=== PATIENT | female | born 1990 | race Two or more races ===

== ENCOUNTER → 2018-07-23 | Outpatient (CLI) | payer SELFPAY ==
--- NOTE | 2018-07-23 13:59 | RADIOLOGY REPORT (SQ) ---
EXAM DESCRIPTION: U/S [id number] TRNABD 1GES W/ODOP COMPLETED DATE/TIME: 07/23/2018 1:40 pm REASON FOR STUDY: Z34.81 ENCOUNTER FOR SUPRVSN OF NORMAL , FIRST TRIMESTER Z34.81 ENCOUNTE R FOR SUPRVSN OF NORMAL , FIRST TRIM COMPARISON: None. TECHNIQUE: Transabdominal static and realtime grayscale images acquired of the pelvis. Additional se lected spectral and color Doppler images recorded. All images stored on PACs. bHCG: None available CLINICAL DATES: Last menses 05/06/2018 LIMITATIONS: None. FINDINGS: Intrauterine gestational sac is present containing an embryo without cardiac activity by r eal-time scanning, M-mode Doppler, or color flow. Embryo demise was called as a critical result to Olivia Decker at the [facility] Department, 1345 hours 07/23/2018. ULTRASOUND EGA: 9 weeks 2 days EFW: Not applicable less than 20 weeks. CRL: 2.6 cm FHR: No embryo cardiac activity SURVEY: Too early to assess. AMNIOTIC FLUID: Adequate amount. PLACENTA: Not yet developed due to early gestation. SUBCHORIONIC BLEED: No. SIZE OF BLEED: Not applicable. UTERUS: No masses. No anomalies. Uterus is 9 x 8 x 8 cm in size CERVICAL LENGTH: 3 Closed. RIGHT ADNEXA: Not visualized due to adnexal bowel gas LEFT ADNEXA: Not visualized due to adnexal bowel gas FREE FLUID: None. OTHER: No other significant finding. IMPRESSION: Embryo demise EGA 9 weeks 2 days Trimester of : First - 0 to 13 weeks. COMMENT: Pertinent findings on the imaging study reported as a CRITICAL RESULT to Chelle Decker at13 :45 on 07/23/2018. Category of Critical Result: Embryo demise, 9 weeks EGA TECHNICAL DOCUMENTATION: JOB ID: [id number] [employer]- All Rights Reserved rev Reading location - IP/workstation name: [id number]
== END ==
LOC: RAD 14:11
PROVIDERS: ATTEND Nurse Practitioner
DX: O02.1 Missed abortion (principal)
CPT/HCPCS: 76801

== ENCOUNTER 2020-05-20 19:23 | Emergency (ER) | payer BC ==
[2020-05-20] MEDS ORDERED: ONDANSETRON HCL INJ/PF 4 MG/2 ML SDV IV ONE (21:30)
[2020-05-20] MEDS ORDERED: NORMAL SALINE 1000 ML 1,000 ML IV ONE (21:30)
--- NOTE | 2020-05-20 21:32 | ER Document Report ---
ED Medical Screen (RME) - General TRAVEL OUTSIDE OF THE U.S[place] IN LAST 30 DAYS: No <DOYLE BENNETT - Last Filed: 05/20/20 21:31> <KIMMY HOUSE JR - Last Filed: 05/21/20 00:07> - General Chief Complaint: Urinary Problem Stated Complaint: NEAR SYNCOPE, BACK PAIN, BLOOD IN URINE Time Seen by Provider: 05/20/20 21:24 Primary Care Provider: REY CARMICHAEL APRN [Primary Care Provider] - Follow up as needed Notes: Patient is a 29-year-old female who presents emergency department with a chief complaint of vomiting. Patient reports she has had a urinary pain and frequency over the past week. States that on Saturday which was 4 days ago she developed vomiting. She states anytime she attempts to drink something she vomits. Patient reports flank pain bilaterally. (DOYLE BENNETT) Physical Exam - Vital signs Vitals: Temp 98.2 F 05/20/20 19:25 Course <DOYLE BENNETT - Last Filed: 05/20/20 21:31> - Laboratory Result Diagrams: 05/20/20 22:00 05/20/20 22:00 <KIMMY HOUSE JR - Last Filed: 05/21/20 00:07> - Re-evaluation Re-evalutation: 05/20/20 21:32 No prominent CVA tenderness. Will initiate basic labs as well as a urinalysis with IV fluids and antinausea medication. I have greeted and performed a rapid initial assessment of this patient. A comprehensive ED assessment and evaluation of the patient, analysis of test results and completion of the medical decision making process will be conducted by additional ED providers. (DOYLE BENNETT) - Vital Signs Vital signs: Temp Pulse Resp BP Pulse Ox 98.2 F 62 20 113/57 L 99 05/20/20 23:13 05/20/20 23:13 05/20/20 23:13 05/20/20 23:13 05/20/20 23:13 - Laboratory Laboratory results interpreted by me: 05/20/20 05/20/20 22:00 22:00 Hgb 16.1 H Total Protein 9.0 H Albumin 5.3 H Doctor's Discharge <DOYLE BENNETT - Last Filed: 05/20/20 21:31> <KIMMY HOUSE JR - Last Filed: 05/21/20 00:07> - Discharge Referrals: REY CARMICHAEL, WELCOME WAGON HOST/HOSTESS [Primary Care Provider] - Follow up as needed
[2020-05-20 22:51] LABS: ABSOLUTE LYMPHOCYTES (AUTO) 1.5 10^3/uL (0.5-4.7); ABSOLUTE MONOCYTES (AUTO) 0.4 10^3/uL (0.1-1.4); ABSOLUTE NEUT (AUTO) 6.3 10^3/uL (1.7-8.2); BASOPHILS % (AUTO) 0.3 % (0-2); EOSINOPHILS % (AUTO) 0.2 % (0-6); HEMATOCRIT 44.8 % (36.0-47.0); HEMOGLOBIN 16.1 g/dL (12.0-15.5); LYMPHOCYTES % (AUTO) 18.4 % (13-45); MEAN CORPUSCULAR HEMOGLOBIN 30.5 pg (27.0-33.4); MEAN CORPUSCULAR HGB CONC 35.8 g/dL (32.0-36.0); MEAN CORPUSCULAR VOLUME 85 fl (80-97); MONOCYTES % (AUTO) 5.2 % (3-13); PLATELET COUNT 295 10^3/uL (150-450); RED BLOOD COUNT 5.27 10^6/uL (3.72-5.28); RED CELL DISTRIBUTION WIDTH 12.7 % (11.5-14.0); SEGMENTED NEUTROPHILS % (AUTO) 75.9 % (42-78); TOTAL CELLS COUNTED % (AUTO) 100 %; WHITE BLOOD COUNT 8.3 10^3/uL (4.0-10.5)
[2020-05-20 23:15] LABS: ALBUMIN 5.3 g/dL (3.5-5.0); ALKALINE PHOSPHATASE 63 U/L (38-126); ANION GAP 16 (5-19); ASPARTATE AMINO TRANSFERASE 25 U/L (14-36); BILIRUBIN,DIRECT 0.2 mg/dL (0.0-0.4); BILIRUBIN,TOTAL 1.3 mg/dL (0.2-1.3); BLOOD UREA NITROGEN 14 mg/dL (7-20); CALCIUM 9.7 mg/dL (8.4-10.2); CARBON DIOXIDE 22 mmol/L (22-30); CHLORIDE 100 mmol/L (98-107); GLUCOSE 90 mg/dL (75-110); POTASSIUM 3.8 mmol/L (3.6-5.0)
--- NOTE | 2020-05-20 23:59 | ER Document Report ---
ED General Pain - General Chief Complaint: Back Pain Stated Complaint: NEAR SYNCOPE, BACK PAIN, BLOOD IN URINE Time Seen by Provider: 05/20/20 21:24 Primary Care Provider: REY CARMICHAEL APRN [Primary Care Provider] - Follow up as needed Mode of Arrival: Ambulatory Information source: Patient Notes: 05/20/20 21:28 - ED Nursing Note by ALEX PITT [facility] Num: [id number] : 1990 Patient Age: 29 Pt presented to the ED with c/o flank pain x7 days with ingrid and vomiting, provider at the bedside orders to follow. Olivia pitt RN ED Medical Screen ([facility] Notes) - General Chief Complaint: Urinary Problem Stated Complaint: NEAR SYNCOPE, BACK PAIN, BLOOD IN URINE Time Seen by Provider: 05/20/20 21:24 Primary Care Provider: REY CARMICHAEL APRN [Primary Care Provider] - Follow up as needed Notes: Patient is a 29-year-old female who presents emergency department with a chief complaint of vomiting. Patient reports she has had a urinary pain and frequency over the past week. States that on Saturday which was 4 days ago she developed vomiting. She states anytime she attempts to drink something she vomits. Patient reports flank pain bilaterally. 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 She reports around 4 years ago she had pyelonephritis but denies any history of any kidney stones or any family history of any kidney stones. She also reports she received IV fluids 1 bag as well as some nausea medicine prior to me seeing her around 2350. TRAVEL OUTSIDE OF THE [place] IN LAST 30 DAYS: No - HPI Onset: Other - x 4 days Onset/Duration: Sudden, Persistent - persistent Quality of pain: Achy Severity: Moderate Pain Level: 3 Context: New onset Typical of prior episodes of painful crisis: No - Related Data Allergies/Adverse Reactions: amoxicillin [From Augmentin] Allergy (Verified 05/20/20 21:33) clavulanic acid [From Augmentin] Allergy (Verified 05/20/20 21:33) Past Medical History - General Information source: Patient - Social History Smoking Status: Never Smoker Cigarette use (# per day): No Chew tobacco use (# tins/day): No Smoking Education Provided: No Frequency of alcohol use: None Drug Abuse: None Lives with: Family Family History: Reviewed & Not Pertinent Patient has suicidal ideation: No Patient has homicidal ideation: No Review of Systems - Review of Systems Constitutional: No symptoms reported EENT: No symptoms reported Cardiovascular: No symptoms reported Respiratory: No symptoms reported Gastrointestinal: No symptoms reported Genitourinary: No symptoms reported Female Genitourinary: No symptoms reported Musculoskeletal: No symptoms reported Skin: No symptoms reported Hematologic/Lymphatic: No symptoms reported Neurological/Psychological: No symptoms reported Physical Exam - Vital signs Vitals: Temp 98.2 F 05/20/20 19:25 Interpretation: Normal - General General appearance: Alert - HEENT Head: Normocephalic, Atraumatic Eyes: Normal Pupils: PERRL - Respiratory Respiratory status: No respiratory distress Chest status: Nontender Breath sounds: Normal Chest palpation: Normal - Cardiovascular Rhythm: Regular Heart sounds: Normal auscultation Murmur: No - Abdominal Inspection: Normal Distension: No distension Bowel sounds: Normal Tenderness: Nontender Organomegaly: No organomegaly - Back Back: Tender, CVA tenderness - Right sided - Extremities General upper extremity: Normal inspection, Nontender, Normal color, Normal ROM, Normal temperature General lower extremity: Normal inspection, Nontender, Normal color, Normal ROM, Normal temperature, Normal weight bearing. No: Ayde's sign - Neurological Neuro grossly intact: Yes Cognition: Normal Orientation: AAOx4 [place] Coma Scale Eye Opening: Spontaneous Yasmin Coma Scale Verbal: Oriented Yasmin Coma Scale Motor: Obeys Commands Yasmin Coma Scale Total: 15 Speech: Normal Motor strength normal: LUE, RUE, LLE, RLE Sensory: Normal - Psychological Associated symptoms: Normal affect, Normal mood - Skin Skin Temperature: Warm Skin Moisture: Dry Skin Color: Normal Course - Vital Signs Vital signs: Temp Pulse Resp BP Pulse Ox 98.2 F 62 20 113/57 L 99 05/20/20 23:13 05/20/20 23:13 05/20/20 23:13 05/20/20 23:13 05/20/20 23:13 - Laboratory Result Diagrams: 05/20/20 22:00 05/20/20 22:00 Laboratory results interpreted by me: 05/20/20 05/20/20 22:00 22:00 Hgb 16.1 H Total Protein 9.0 H Albumin 5.3 H - Diagnostic Test Radiology reviewed: Reports reviewed Discharge - Discharge Clinical Impression: Dysuria Back pain Qualifiers: Back pain location: back pain in unspecified location Chronicity: acute Back pain laterality: right Qualified Code(s): M54.9 - Dorsalgia, unspecified Vomiting Qualifiers: Vomiting type: unspecified Vomiting Intractability: non-intractable Nausea presence: with nausea Qualified Code(s): R11.2 - Nausea with vomiting, unspecified Condition: Fair Disposition: HOME, SELF-CARE Forms: Return to Work Referrals: REY CARMICHAEL, ORTHODONTIC TREATMENT COORDINATOR [Primary Care Provider] - Follow up as needed
[2020-05-21] MEDS: NORMAL SALINE 1000 ML 1,000 ML IV PRN ×2 (00:18→01:49)
[2020-05-21 00:51] LABS: APPEARANCE,URINE SLIGHTLY-CLOUDY; BILIRUBIN,URINE NEGATIVE (NEGATIVE); COLOR,URINE AMBER; GLUCOSE, URINE NEGATIVE (NEGATIVE); KETONES,URINE 20 mg/dL (NEGATIVE); LEUKOCYTE ESTERASE,URINE NEGATIVE (NEGATIVE); NITRITE,URINE POSITIVE (NEGATIVE); PROTEIN,URINE 100 mg/dL (NEGATIVE)
[2020-05-21] MEDS ORDERED: ONDANSETRON HCL INJ/PF 4 MG/2 ML SDV IV ONE (01:01)
[2020-05-21 01:07] LABS: URINE AMPHETAMINES SCREEN NEGATIVE; URINE BARBITURATES SCREEN NEGATIVE; URINE BENZODIAZEPINES SCREEN NEGATIVE; URINE COCAINE SCREEN NEGATIVE; URINE METHADONE SCREEN NEGATIVE; URINE PHENCYCLIDINE SCREEN NEGATIVE
[2020-05-21] MEDS ORDERED: CEFTRIAXONE INJ 1000 MG VIAL IV ONE (01:10)
[2020-05-21 01:15] LABS: URINE MARIJUANA (THC) SCREEN UNCONFIRMED POSITIVE
--- NOTE | 2020-05-21 01:41 | RADIOLOGY REPORT (SQ) ---
EXAM DESCRIPTION: RadLex: US LESS THAN 14 WEEKS CLINICAL HISTORY: 29 years Female; right flank pain; TECHNIQUE: Transabdominal pelvic ultrasound was performed. COMPARISON: None. FINDINGS: Uterus: 7.3 x 6.5 x 6.1 cm. Intrauterine gestational sac is identified. pole CRL 0.47 cm, 6 weeks 1 day heart rate 124 BPM Sac is present. There is a small adjacent subchorionic hemorrhage, 1.2 x 0.7 x 1.1 cm Cervix 1.7 cm, closed Right ovary: 3.6 x 2.3 x 1.3 cm. Normal vascular flow on Doppler. Left ovary: 3.6 x 2.3 x 2 cm with a corpus luteum cyst. Normal vascular flow on Doppler. No free fluid. No adnexal masses. IMPRESSION: 1. Single viable IUP, EGA 6 weeks 1 day 2. Small subchorionic hemorrhage
[2020-05-21] MEDS ORDERED: AZITHROMYCIN INJ 500 MG VIAL IV ONE (01:55)
--- NOTE | 2020-05-21 02:05 | RADIOLOGY REPORT (SQ) ---
CLINICAL INDICATION: RIGHT FLANK PAIN. . TECHNIQUE: Real time multiplanar ultrasonographic anguiano scale imaging was obtained of the kidneys. 28 images obtained. COMPARISON: None. CORRELATION: None. FINDINGS: The right kidney measures 9.7 x 5.0 x 3.5 centimeters. No evidence of hydronephrosis, nephrolithiasis or solid mass lesion. The renal parenchyma is of normal contour and echogenicity. The left kidney measures 10.5 x 5.3 x 6.1 centimeters. No evidence of hydronephrosis, nephrolithiasis or solid mass lesion. The renal parenchyma is of normal contour and echogenicity. Urinary bladder is anechoic. Both ureteral jets are identified IMPRESSION: Unremarkable renal sonogram. The cause of the patient's right flank pain is not identified on this examination.
[2020-05-21] MEDS ORDERED: ONDANSETRON ODT 4 MG TAB (6 TAB/ER DISP) PO PRN (02:06)
[2020-05-21 03:39] LABS: CHLAM PCR NOT DETECTED (NOT DETECT)
[2020-05-21 04:03] VITALS: BP 119/75
== END 2020-05-21 03:50 | disposition home or self-care (01) ==
LOC: ER 19:23
DX: O23.41 Unspecified infection of urinary tract in pregnancy, first trimester (principal); M54.9 Dorsalgia, unspecified; R10.9 Unspecified abdominal pain; O21.8 Other vomiting complicating pregnancy; Z3A.01 Less than 8 weeks gestation of pregnancy
CPT/HCPCS: 99284; 96361 ×2; 96375 ×2; 96365; 96368; 36415; 87040; 87086; 84702; 85025; 81025; 87077; 80053; 81001; 87186; 80307; 87491; 87591; 87150 ×26; 76801; 76770; J0696; J2405 ×2; J7030 ×2; J0456